=== PATIENT | male | born 2000 | race Caucasian/White ===

== ENCOUNTER 2020-10-23 22:50 | Emergency (ER) | payer BC, OTHER ==
[2020-10-23 23:00] VITALS: BP 134/90; PULSE 82; TEMP 98.7; BMI 28.8
[2020-10-23] MEDS ORDERED: diphenhydrAMINE HCL 25 MG CAPSULE (FP) PO ONE ×2 (23:16→23:19)
== END 2020-10-24 00:16 | disposition home or self-care (01) ==
LOC: FER 22:50
DX: T50.905A Adverse effect of unspecified drugs, medicaments and biological substances, initial encounter (principal)
CPT/HCPCS: 99283-25